=== PATIENT | male | born 1940 | race Hispanic/Latino ===

== ENCOUNTER 2023-03-08 05:06 | Observation (INO) | payer OTHER, MEDICARE ==
[2023-03-05 12:23] VITALS: BP 153/76; PULSE 62; RESP 14
[2023-03-05 12:28] LABS: BASOPHILS # (AUTO) 0.04 K/uL (0.00-0.20); BASOPHILS % (AUTO) 0.6 % (0.0-5.0); EOSINOPHILS # (AUTO) 0.13 K/uL (0.00-0.70); HEMATOCRIT 48.5 % (42-54); IMMATURE GRANULOCYTE ABSOLUTE 0.03 K/uL (0-1); LYMPHOCYTES # (AUTO) 1.4 K/uL (1.0-4.8); LYMPHOCYTES % (AUTO) 20.9 % (21.0-51.0); MEAN CORPUSCULAR HEMOGLOBIN 30.2 pg (27.0-33.0); MEAN CORPUSCULAR HGB CONC 32.8 g/dL (32.0-36.0); MEAN CORPUSCULAR VOLUME 92.2 fL (79-99); MONOCYTES # (AUTO) 0.5 K/uL (0.1-1.0); MONOCYTES % (AUTO) 7.4 % (3.0-13.0); NEUTROPHILS # (AUTO) 4.4 K/uL (1.8-7.7); NEUTROPHILS % (AUTO) 68.6 % (40.0-77.0); PLATELET COUNT (AUTO) 191 K/uL (130-400); RED BLOOD CELL COUNT(AUTO) 5.26 MIL/uL (4.50-6.20); RED CELL DISTRIBUTION WIDTH 14.3 % (11.0-15.5); WHITE BLOOD COUNT (AUTO) 6.5 K/uL (4.8-10.8)
[2023-03-05 12:44] LABS: INR 0.94 (0.85-1.15)
[2023-03-05 12:46] LABS: PARTIAL THROMBOPLASTIN TIME 30.2 SEC (26.3-35.5)
[2023-03-05 12:59] LABS: ALBUMIN 3.5 g/dL (3.5-5.0); BILIRUBIN,TOTAL 0.3 mg/dL (0.2-1.0); CREATININE 0.8 mg/dL (0.5-1.5); POTASSIUM 4.3 mmol/L (3.5-5.1); TOTAL PROTEIN, SERUM 7.4 g/dL (6.0-8.3)
[~2023-03-08] VITALS: Ht 165.1 cm; Wt 75.4 kg
[2023-03-08] VITALS (39 sets, daily range): BP systolic 107–146; BP diastolic 51–85; PULSE 64–89; RESP 14–21; O2SAT 99
[~2023-03-08 05:06] MED LIST: CARB200T6 PO; CETI10TA57 PO; LOSA50TA64 PO; OMEP20CA12 PO; OXYB10TA30 PO; SILO8CAP2 PO; Tylenol Arthritis PO
[2023-03-08] MEDS ORDERED: CEFAZOLIN SODIUM 2 GM VIAL ONE (05:13)
[2023-03-08] MEDS ORDERED: LACTATED RINGERS 1000ML 1,000 ML IV ONE (05:13)
[2023-03-08] MEDS ORDERED: TRANEXAMIC ACID 1000MG/10ML ONE (06:28)
[2023-03-08] MEDS ORDERED: CEFAZOLIN SODIUM 1 GM VIAL ONE (06:28)
[2023-03-08] MEDS ORDERED: GENTAMICIN SULFATE 80 MG/2 ML VIAL ONE (06:28)
[2023-03-08] MEDS ORDERED: LIDOCAINE PF 100MG/5ML (2%) SYRINGE 5ML ONE (06:56)
[2023-03-08] MEDS ORDERED: FENTANYL CITRATE PF 50 MCG/1 ML 2ML VIAL ONE (06:57)
[2023-03-08] MEDS ORDERED: PROPOFOL 10 MG/ML 20ML VIAL IV ONE (06:57)
[2023-03-08] MEDS ORDERED: ROCURONIUM 10MG/1ML SYR 10 MG/ML ML ONE ×2 (06:57→07:47)
[2023-03-08] MEDS ORDERED: 0.9%NACL 48.45 ML, ROPIVACAINE 0.5% 49.25ML, EPINEPH 0.5MG KETOROLAC 30MG,CLONIDINE 80MCG IV PRN ×5 (07:00)
[2023-03-08] MEDS ORDERED: ACETAMINOPHEN 1,000 MG/100 ML VIAL IV ONE (07:03)
[2023-03-08] MEDS ORDERED: ONDANSETRON 4MG INJ ONE (07:25)
[2023-03-08] MEDS ORDERED: DEXAMETHASONE SOD PHOSPHATE 10MG/ML 1ML VIAL ONE (07:25)
[2023-03-08] MEDS ORDERED: TRANEXAMIC ACID 1000MG/10ML IV ONE (07:59)
[2023-03-08] MEDS ORDERED: EPHEDRINE SULFATE 50 MG/ML AMPULE ONE (08:29)
[2023-03-08] MEDS ORDERED: NEOSTIGMINE METHYLSULFATE 1MG/ML IV ONE (08:32)
[2023-03-08] MEDS ORDERED: GLYCOPYRROLATE 1 MG/5 ML SYRINGE ONE (08:32)
[2023-03-08] MEDS ORDERED: MEPERIDINE-PF 25 MG/ML SYG ONE (09:10)
[2023-03-08] MEDS ORDERED: 0.9%NACL 1000ML 1,000 ML IV ONE (11:11)
[2023-03-08] MEDS ORDERED: DIPHENHYDRAMINE HCL 25 MG CAPSULE PO PRN (12:00)
[2023-03-08] MEDS ORDERED: LACTULOSE 20 GM/30 ML UDCUP PO PRN (12:00)
[2023-03-08] MEDS ORDERED: ACETAMINOPHEN 325 MG TAB PO PRN (12:00)
[2023-03-08] MEDS ORDERED: ONDANSETRON 4MG INJ IVP PRN ×2 (12:00→14:00)
[2023-03-08] MEDS ORDERED: HYDROMORPHONE PCA 10 MG/50 ML 50 ML IV PRN (13:00)
[2023-03-08] MEDS ORDERED: COMPOUND IV REFRIGERATED 1 EACH IVSOLN MISC PRN (13:30)
[2023-03-08] MEDS ORDERED: CEFAZOLIN SODIUM 2 GM VIAL IVPB SCH (15:30)
[2023-03-08] MEDS ORDERED: CEFAZOLIN SODIUM 3 GM in DEXTROSE 5%-WATER 100 ML IVPB ONE (15:30)
[2023-03-08] MEDS: MAG/ALUM/SIMETH 30 ML UDCUP PO PRN ×2 (15:43→23:30)
[2023-03-08] MEDS: CARBAMAZEPINE 200 MG TABLET PO SCH (20:01)
[2023-03-08] MEDS ORDERED: CETIRIZINE HCL 5 MG TABLET PO SCH (21:00)
[2023-03-08] MEDS ORDERED: OXYBUTYNIN CHLORIDE 10 MG PO SCH (21:00)
[2023-03-08] MEDS ORDERED: CEFAZOLIN SODIUM 1 GM VIAL IVPB SCH (23:00)
[2023-03-08] MEDS: CEFAZOLIN SODIUM 3 GM in DEXTROSE 5%-WATER 100 ML IVPB SCH (23:31)
[2023-03-09] VITALS: BP 119/70; PULSE 87
[2023-03-09 03:00] VITALS: BP 134/70; PULSE 63; RESP 18
[2023-03-09 03:54] LABS: ALBUMIN 2.9 g/dL (3.5-5.0); BILIRUBIN,TOTAL 0.4 mg/dL (0.2-1.0); CREATININE 1.1 mg/dL (0.5-1.5); POTASSIUM 3.9 mmol/L (3.5-5.1); TOTAL PROTEIN, SERUM 6.3 g/dL (6.0-8.3)
[2023-03-09 03:57] LABS: BASOPHILS # (AUTO) 0.04 K/uL (0.00-0.20); BASOPHILS % (AUTO) 0.3 % (0.0-5.0); EOSINOPHILS # (AUTO) 0.01 K/uL (0.00-0.70); EOSINOPHILS % (AUTO) 0.1 % (0.0-8.0); HEMATOCRIT 41.5 % (42-54); IMMATURE GRANULOCYTE ABSOLUTE 0.07 K/uL (0-1); LYMPHOCYTES # (AUTO) 0.7 K/uL (1.0-4.8); LYMPHOCYTES % (AUTO) 6.1 % (21.0-51.0); MEAN CORPUSCULAR HEMOGLOBIN 30.2 pg (27.0-33.0); MEAN CORPUSCULAR HGB CONC 33.7 g/dL (32.0-36.0); MEAN CORPUSCULAR VOLUME 89.4 fL (79-99); MONOCYTES # (AUTO) 0.9 K/uL (0.1-1.0); MONOCYTES % (AUTO) 7.4 % (3.0-13.0); NEUTROPHILS # (AUTO) 9.9 K/uL (1.8-7.7); NEUTROPHILS % (AUTO) 85.5 % (40.0-77.0); PLATELET COUNT (AUTO) 206 K/uL (130-400); RED BLOOD CELL COUNT(AUTO) 4.64 MIL/uL (4.50-6.20); RED CELL DISTRIBUTION WIDTH 14.4 % (11.0-15.5); WHITE BLOOD COUNT (AUTO) 11.5 K/uL (4.8-10.8)
[2023-03-09] MEDS: CEFAZOLIN SODIUM 3 GM in DEXTROSE 5%-WATER 100 ML IVPB SCH (06:02)
[2023-03-09 08:00] VITALS: BP 130/63; PULSE 86; RESP 19
[2023-03-09] MEDS: CARBAMAZEPINE 200 MG TABLET PO SCH (08:45)
[2023-03-09] MEDS ORDERED: SILODOSIN 8 MG PO SCH (09:00)
[2023-03-09] MEDS ORDERED: RIVAROXABAN 10 MG TABLET PO SCH (09:00)
[2023-03-09] MEDS ORDERED: LOSARTAN 50 MG TABLET PO SCH (09:00)
[2023-03-09 12:00] VITALS: BP 134/86; PULSE 84; RESP 19
[2023-03-09 16:00] VITALS: BP 145/74; PULSE 67; RESP 19
== END 2023-03-09 17:25 | disposition home health service (06) ==
LOC: DAH 05:06 → DAHIP 05:07 → 4DH 20:37
PROVIDERS: ADMIT Orthopaedic Surgery; ATTEND Orthopaedic Surgery
DX: M17.12 Unilateral primary osteoarthritis, left knee (principal); I10 Essential (primary) hypertension; E78.5 Hyperlipidemia, unspecified; G40.909 Epilepsy, unspecified, not intractable, without status epilepticus; E66.3 Overweight; Z85.46 Personal history of malignant neoplasm of prostate; Z87.891 Personal history of nicotine dependence; Z96.652 Presence of left artificial knee joint; Z98.49 Cataract extraction status, unspecified eye; Z79.899 Other long term (current) drug therapy; Z98.890 Other specified postprocedural states; Z68.27 Body mass index [BMI] 27.0-27.9, adult
CPT/HCPCS: 80053 ×2; 85025 ×2; 85610; 85730; 36415 ×2; 87641; 27447; 96365; 96366 ×4; 96368; 97161; 97012; 97116 ×3; 97530 ×8; 96375; A6260; G0378 ×32; G0379; A4510; A4663; J7120 ×2; A4215 ×2; A4649 ×4; J3010; J0690 ×6; J3490 ×4; J1170; J1100; J7030 ×2; J0171; J2001; J1580; J7060 ×4; J2704; J2405 ×2; J1885; J2710; J2795; J0735; A6223; C1763 ×2; C1776; A5120; A4223; A4222; A4221; A6450; J2175